=== PATIENT | female | born 1980 | race Caucasian/White ===

== ENCOUNTER 2018-10-27 09:42 | Emergency (ER) | payer SELFPAY ==
[~2018-10-27] VITALS: Ht 157.5 cm; Wt 61.2 kg
--- NOTE | 2018-10-27 09:50 | NUR ---
[id number] A MOTEL FOR ANXIETY AND PANIC ATTACK, STS "I CANT BREATHE.", TO ER BED 10, HOOKED TO MONITOR, DR ODEN AT BEDSIDE, AWAITING MD ORDERS
[2018-10-27] MEDS ORDERED: OLANZAPINE 10 MG VIAL IM ONE ×2 (09:57→10:00)
[2018-10-27 10:07] LABS: BASOPHILS % (AUTO) 0.5 % (0.0-2.0); HEMATOCRIT 39 % (33-45); HEMOGLOBIN 13.1 g/dL (11.5-14.8); LYMPHOCYTES # (AUTO) 1.7 /CMM (0.8-4.8); LYMPHOCYTES % (AUTO) 15.4 % (20.0-44.0); MEAN CORPUSCULAR HGB CONC 34 g/dl (31.0-36.0); MEAN CORPUSCULAR VOLUME 87 fL (82-100); MONOCYTES # (AUTO) 0.9 /CMM (0.1-1.30); MONOCYTES % (AUTO) 7.9 % (2.0-12.0); NEUTROPHILS # (AUTO) 8.2 /CMM (1.8-8.9); NEUTROPHILS % (AUTO) 75.2 % (43.0-81.0); PLATELET COUNT (AUTO) 350 /CMM (150-450); RED BLOOD CELL COUNT(AUTO) 4.47 MIL/uL (4.0-5.2); WHITE BLOOD COUNT (AUTO) 10.9 K/uL (4.3-11.0)
--- NOTE | 2018-10-27 10:16 | NUR ---
URINE SAMPLE SENT TO LAB
[2018-10-27 10:28] LABS: ALANINE AMINOTRANSFERASE 27 U/L (12-78); ALBUMIN 4.4 g/dL (3.4-5.0); ALKALINE PHOSPHATASE 106 U/L (46-116); ASPARTATE AMINOTRANSFERASE 58 U/L (15-37); BILIRUBIN,DIRECT 0.1 mg/dL (0.0-0.2); BILIRUBIN,TOTAL 0.5 mg/dL (0.2-1.0); CALCIUM, SERUM 9.1 mg/dL (8.5-10.1); CARBON DIOXIDE 24 mmol/L (21-32); CHLORIDE 98 mmol/L (98-107); CREATININE 1.2 mg/dL (0.6-1.3); GLUCOSE 104 mg/dL (74-106); SODIUM SERUM 138 mmol/L (136-145); UREA NITROGEN, BLOOD 7 mg/dL (7-18)
[2018-10-27 10:29] LABS: ACETAMINOPHEN 0 ug/ml (10-30); ALCOHOL, BLOOD < 3 mg/dL (0-0); SALICYLATE 1.5 mg/dL (2.8-20.0)
[2018-10-27 10:30] LABS: POTASSIUM 2.7 mmol/L (3.5-5.1)
[2018-10-27 10:38] LABS: APPEARANCE,URINE Clear (CLEAR); BILIRUBIN,URINE Negative (NEGATIVE); BLOOD, URINE Small Ery/uL (NEGATIVE); COLOR,URINE Yellow (YELLOW); KETONES,URINE 40 (NEGATIVE); LEUKOCYTE ESTERASE ,URINE Negative (NEGATIVE); NITRITE, URINE Negative (NEGATIVE); PH,URINE 6.5 (5.0-8.0); PROTEIN,URINE Trace mg/dl (NEGATIVE); UGLUCOSE Negative (NEGATIVE); UROBILINOGEN,URINE 0.2 EU/dL (0.2)
[2018-10-27] MEDS ORDERED: POTASSIUM CHLORIDE 20 MEQ TAB.PRT.SR PO ONE ×2 (10:43→11:00)
[2018-10-27 10:52] LABS: BACTERIA,URINE Few /HPF (None Seen); SQUAMOUS EPITHELIAL CELL,UR Rare /HPF (None Seen); WBC,URINE 0-2 /HPF (0-3)
--- NOTE | 2018-10-27 11:37 | NUR ---
PT IN BED ASLEEP, EASILY AROUSED BY VOICE, HOOKED TO MONITOR, KEPT SAFE AND COMFORTABLE.
--- NOTE | 2018-10-27 12:54 | NUR ---
PT IN BED AWAKE, CALM AND COOPERATIVE. HOOKED TO MONITOR, KEPT SAFE AND WARM.
--- NOTE | 2018-10-27 14:12 | NUR ---
PT IN BED ASLEEP, HOOKED TO MONITOR, VSS, KEPT SAFE AND COMFORTABLE
--- NOTE | 2018-10-27 15:22 | NUR ---
PT IN BED AWAKE, USING HER PHONE, APPEARS CALM. HOOKED TO MONITOR. KEPT COMFORTABLE.
--- NOTE | 2018-10-27 16:00 | NUR ---
[employer]AGE [employer]T [employer] AT BEDSIDE
--- NOTE | 2018-10-27 17:02 | NUR ---
TRIED TO CONTACT FRIEND: RODRIGUE [phone], NO ANSWER, NO VM AVAILABLE
--- NOTE | 2018-10-27 17:15 | NUR ---
CONTACTED PARAMEDICS. INFORMED THAT PT WAS PICKED UP FROM [facility]: [id number] [facility] [id number]. PROVIDED ADDRESS TO PATIENT.
--- NOTE | 2018-10-27 17:51 | NUR ---
Patient discharged in stable condition. A&Ox4, AMBULATORY WTH STEADY GAIT. Written and verbal after care instructions given. Patient verbalizes understanding of instruction.
[2018-10-27 18:08] VITALS: BP 143/81
== END 2018-10-27 18:09 | disposition home or self-care (01) ==
LOC: ER 09:43
DX: F15.10 Other stimulant abuse, uncomplicated (principal); Z88.8 Allergy status to other drugs, medicaments and biological substances; Z98.890 Other specified postprocedural states
CPT/HCPCS: 36415; 80048; 80076; 80305; 80307; 80329; 81001; 84703; 85025; 96372; 99285; G0480; J3490; 81000-TC